=== PATIENT | female | born 1975 | race Caucasian/White ===

== ENCOUNTER 2017-03-15 18:21 | Emergency (ER) | payer BC, OTHER ==
[~2017-03-15] VITALS: Ht 160 cm; Wt 88.5 kg
[2017-03-15 19:45] VITALS: Ht 160 cm; Wt 88.5 kg
[2017-03-15] MEDS ORDERED: KETOROLAC 30 MG INJ IV STA (21:30)
[2017-03-15] MEDS ORDERED: SOD CHLORIDE 0.9% 1,000 ML IV STA (21:30)
--- NOTE | 2017-03-16 01:02 | RADRPT ---
PROCEDURE: CT Abdomen and pelvis without contrast. CLINICAL INDICATION: Abdominal pain. TECHNIQUE: CT scan of the abdomen and pelvis was performed on a multi-detector high-resolution CT scanner. Contiguous axial images were obtained from the lung bases to the ischial tuberosities wit hout intravenous contrast. Coronal and sagittal reformatted images were also obtained. Images were reviewed on the PACS workstation. One or more of the following dose reduction techniques were used: - Automated exposure control. - Adjustment of the mA and/or kV according to patient size. - Use of iterative reconstruction technique. Exam CTD/vol = 17.46 mGy. Total exam DLP = 985.40 mGy-cm. COMPARISON: 08/06/2008. FINDINGS: Evaluation of the lung bases demonstrates minimal bibasilar atelectasis. Abdomen: The liver is normal in size. There is no focal mass or dilatation of the biliary tree. T he gallbladder is not distended. The spleen, pancreas and bilateral adrenal glands are within edna l limits. Bilateral kidneys are normal in size with no contour deforming mass identified. There is no radiopaque renal or ureteral calculus identified. There is no hydronephrosis or hydroureter. T here is no retroperitoneal adenopathy. The abdominal aorta is of normal caliber. There is moderate retained stool within the colon. There are fecalized loops of small bowel. There is no bowel obstruction or free air. A normal appendix is identified. There is no diverticulosis o r diverticulitis. There is no ascites. Pelvis: The bladder is unremarkable. The uterus is unremarkable. There is a cystic structure with in the right adnexa measuring 3.5 x 2.7 cm. There is no significant pelvic adenopathy or free fluid . Evaluation of the osseous structures demonstrates no suspicious lytic or blastic lesion. IMPRESSION: Fecalized loops of small bowel suggestive of an ileus. There is no bowel obstruction. Moderate retained stool within the right colon. Right adnexal 3.5 cm cyst. Otherwise no acute abnormality identified within the abdomen and pelvis. .Alonso Waters MD, MD Date Time Electronically viewed and signed by .Alonso Waters MD, MD on 03/16/2017 01:01 .T/
[2017-03-16] MEDS ORDERED: DOCU-144 PO (01:12)
[2017-03-16] MEDS ORDERED: IBUP-1542 PO (01:13)
[2017-03-16] MEDS ORDERED: DICY10CA60 PO (01:13)
--- NOTE | 2017-03-16 16:11 | ERD ---
ER Documentation Chief Complaint Chief Complaint WORESENING LEFT LOW BACK PAIN TODAY. DENIES FALL HPI This is a 41-year-old female presents to the ER with her complaining of left-sided lower back pain and flank pain that radiates into her abdomen over the last week. Patient states she has had a fever at home and chills. She denies any nausea vomiting or diarrhea. Pain is throbbing in quality and is made better with naproxen, however always returns. Patient denies any urinary frequency or dysuria. Patient denies any trauma to the back. Denies any urinary bowel incontinence. She denies any saddle like anesthesia. ROS 12 point review of systems was done, all negative except per HPI. Medications Home Meds Active Scripts Ibuprofen* (Ibuprofen*) 600 Mg Tablet, 600 MG PO Q6 for 3 Days, TAB Prov:KAREN ADAM C 03/16/17 Dicyclomine Hcl* (Bentyl*) 10 Mg Capsule, 10 MG PO QID for 5 Days, CAP Prov:GRACE ADAMNA C 03/16/17 Docusate Sodium* (Colace*) 100 Mg Capsule, 100 MG PO TID, #30 CAP Prov:KIA,KAREN C 03/16/17 Allergies Allergies: Coded Allergies: amoxicillin (Verified Allergy, Unknown, 03/15/17) PMhx/Soc Medical and Surgical Hx: pt denies Medical Hx, pt denies Surgical Hx Hx Alcohol Use: No Hx Substance Use: No Hx Tobacco Use: No Smoking Status: Never smoker Physical Exam Vitals Vital Signs Date Time Temp Pulse Resp B/P Pulse Ox O2 Delivery O2 Flow Rate FiO2 03/15/17 19:45 98.8 61 20 127/65 98 Physical Exam GENERAL: The patient is well developed and appropriate for usual state of health , in no apparent distress. HEENT: Atraumatic. CHEST: Clear to auscultation bilaterally. There are no rales, wheezes or rhonchi. HEART: Regular rate and rhythm. No murmurs, clicks, rubs or gallops. ABDOMEN: Nondistended, tender to palpation the left lower quadrant. Good bowel sounds. No rebound or guarding. No gross peritonitis. No gross organomegaly or masses. No William sign or McBurney point tenderness. BACK: No midline or flank tenderness. NEURO: Alert and oriented. SKIN: The skin is warm and dry. Result Diagram: 03/15/17214903/15/17 2300 Results 24 hrs Laboratory Tests Test 03/15/17 21:45 03/15/17 21:50 03/15/17 23:00 Urine Color YELLOW Urine Clarity SLIGHTLY CLOUDY Urine pH 7.0 Urine Specific [place] 1.015 Urine Ketones NEGATIVEmg/dL Urine Nitrite NEGATIVEmg/dL Urine Bilirubin NEGATIVEmg/dL Urine Urobilinogen NEGATIVEmg/dL Urine Leukocyte Esterase NEGATIVELeu/ul Urine Microscopic RBC 4/HPF Urine Microscopic WBC 0/HPF Urine Squamous Epithelial Cells FEW/HPF Urine Amorphous Crystals FEW/HPF Urine Mucus FEW/HPF Urine Hemoglobin NEGATIVEmg/dL Urine Glucose NEGATIVEmg/dL Urine Total Protein NEGATIVEmg/dl White Blood Count 11.610^3/ul Red Blood Count 4.1910^6/ul Hemoglobin 13.3g/dl Hematocrit 39.3% Mean Corpuscular Volume 93.8fl Mean Corpuscular Hemoglobin 31.7pg Mean Corpuscular Hemoglobin Concent 33.8g/dl Red Cell Distribution Width 13.0% Platelet Count 17872^3/UL Mean Platelet Volume 10.7fl Neutrophils % 62.6% Lymphocytes % 30.7% Monocytes % 5.0% Eosinophils % 1.0% Basophils % 0.4% Nucleated Red Blood Cells % 0.0/100WBC Neutrophils # 7.310^3/ul Lymphocytes # 3.610^3/ul Monocytes # 0.610^3/ul Eosinophils # 0.110^3/ul Basophils # 0.110^3/ul Nucleated Red Blood Cells # 0.010^3/ul Sodium Level 142mmol/L Potassium Level 3.8mmol/L Chloride Level 110mmol/L Carbon Dioxide Level 24mmol/L Anion Gap 12 Blood Urea Nitrogen 13mg/dl Creatinine 0.77mg/dl Glucose Level 89mg/dl Calcium Level 8.7mg/dl Total Bilirubin 0.1mg/dl Direct Bilirubin 0.00mg/dl Indirect Bilirubin 0.1mg/dl Aspartate Amino Transf (AST/SGOT) 25IU/L Alanine Aminotransferase (ALT/SGPT) 36IU/L Alkaline Phosphatase 82IU/L Total Protein 7.4g/dl Albumin 3.6g/dl Globulin 3.80g/dl Albumin/Globulin Ratio 0.94 Lipase 132U/L Current Medications Medications (Trade) Dose Ordered Sig/Marlene Route PRN Reason Start Time Stop Time Status Last Admin Dose Admin Sodium Chloride (NS) 1,000 ml @ 1,000 mls/hr Q1H STAT IV 03/15/17 21:30 03/15/17 22:29 DC 03/15/17 21:52 Ketorolac Tromethamine (Toradol) 30 mg ONCE STAT IV 03/15/17 21:30 03/15/17 21:32 DC 03/15/17 21:52 [place] [id number] Radiology Main Line: [phone] DIAGNOSTIC IMAGING REPORT Patient: MARYANN BOYD : 1975 Age: 41 Sex: F MR #: [id number] DOS: 03/15/170 Ordering MD: KAREN ADAM PA-C Location: [facility] Room/Bed: PROCEDURE: CT Abdomen and pelvis without contrast. CLINICAL INDICATION: Abdominal pain. TECHNIQUE: CT scan of the abdomen and pelvis was performed on a multi- detector high-resolution CT scanner. Contiguous axial images were obtained from the lung bases to the ischial tuberosities without intravenous contrast. Coronal and sagittal reformatted images were also obtained. Images were reviewed on the PACS workstation. One or more of the following dose reduction techniques were used: - Automated exposure control. - Adjustment of the mA and/or kV according to patient size. - Use of iterative reconstruction technique. Exam CTD/vol = 17.46 mGy. Total exam DLP = 985.40 mGy-cm. COMPARISON: 08/06/2008. FINDINGS: Evaluation of the lung bases demonstrates minimal bibasilar atelectasis. Abdomen: The liver is normal in size. There is no focal mass or dilatation of the biliary tree. The gallbladder is not distended. The spleen, pancreas and bilateral adrenal glands are within normal limits. Bilateral kidneys are normal in size with no contour deforming mass identified. There is no radiopaque renal or ureteral calculus identified. There is no hydronephrosis or hydroureter. There is no retroperitoneal adenopathy. The abdominal aorta is of normal caliber. There is moderate retained stool within the colon. There are fecalized loops of small bowel. There is no bowel obstruction or free air. A normal appendix is identified. There is no diverticulosis or diverticulitis. There is no ascites. Pelvis: The bladder is unremarkable. The uterus is unremarkable. There is a cystic structure within the right adnexa measuring 3.5 x 2.7 cm. There is no significant pelvic adenopathy or free fluid. Evaluation of the osseous structures demonstrates no suspicious lytic or blastic lesion. IMPRESSION: Fecalized loops of small bowel suggestive of an ileus. There is no bowel obstruction. Moderate retained stool within the right colon. Right adnexal 3.5 cm cyst. Otherwise no acute abnormality identified within the abdomen and pelvis. .Alonso Waters MD, MD Date Time Electronically viewed and signed by .Alonso Waters MD, on 03/16/2017 01:01 .T/ CC: KAREN ADAM Procedures/MDM Differential diagnosis includes but is not limited to appendicitis, diverticulitis, hernia, UTI, constipation, ectopic , ovarian torsion, PID, Mittelschmerz, fibroid,tubo-ovarian abscess, kidney stone, septic stone. This time etiology of flank pain is unknown. There is no evidence of urinary tract infection or kidney stone. Her abdominal exam is benign, there is no CT evidence of acute abdomen. Patient is afebrile and well-appearing. Patient did have a significant amount of constipation which may be causing left-sided abdominal pain. Patient did have a mass in the right side, however she does not have any pain in the right lower abdomen, suspicion for ovarian torsion is low. Was advised to get an ultrasound of the pelvic area and outpatient basis as she is asymptomatic in regards to the right adnexal mass at this time. Patient for cauda equina or epidural abscess is low, patient has not had any trauma and has denied urinary bowel incontinence. Has full and nonpainful range of motion of bilateral lower extremities and is neurovascularly intact. Patient needs to follow-up with her primary care doctor within 1-2 days return to ER sooner if symptoms worsen. My medical decision making shared with the patient she understands and agrees with plan. Departure Diagnosis: Primary Impression: Flank pain Condition: Stable Patient Instructions: Flank Pain, Uncertain Cause Referrals: [facility] (PCP) Additional Instructions: Llame al doctor MAANA y maggi ignacio TIERNEY PARA DENTRO DE 1-2 HUNTER.Dgale a la secretaria que nosotros le instruimos hacer esta tierney.Avise o llame si carolina condicin se empeora antes de la tierney. Regresa aqui si peor o no mejor. KAREN ADAM Mar 16, 2017 16:11
== END 2017-03-16 01:24 | disposition home or self-care (01) ==
LOC: FTE 18:21
DX: R10.32 Left lower quadrant pain (principal)
CPT/HCPCS: 36415; 74176; 80053; 81001; 83690; 85025; 96374; 99285; J1885; J7030; 81003